=== PATIENT | female | born 1980 | race African-American/Black ===

== ENCOUNTER 2018-09-15 14:40 | Emergency (ER) | payer SELFPAY ==
[~2018-09-15] VITALS: Ht 165.1 cm; Wt 90.0 kg
[~2018-09-15 14:40] MED LIST: TRAZODONE; ZOLOFT
[2018-09-15] MEDS ORDERED: IPRATROPIUM BROMIDE (0.02%) 0.5MG/2.5ML NEB HHN STA (16:20)
[2018-09-15] MEDS ORDERED: ALBUTEROL (0.083%) 2.5MG/3ML NEB HHN STA (16:20)
[2018-09-15 17:46] VITALS: BP 114/82
== END 2018-09-15 17:48 | disposition home or self-care (01) ==
LOC: ER 14:40
DX: R05 Cough (principal); J45.909 Unspecified asthma, uncomplicated; Z88.3 Allergy status to other anti-infective agents
CPT/HCPCS: 71045; 81025; 99283; J7611